=== PATIENT | female | born 1995 | race Caucasian/White ===

== ENCOUNTER 2017-08-15 14:28 | Emergency (ER) | payer MEDICAID ==
[2017-08-15 14:54] LABS: BILIRUBIN,URINE NEGATIVE (NEGATIVE)
[2017-08-15 14:57] LABS: UA w/ MICROSCOPIC CHARGE YES
[2017-08-15 15:15] LABS: UR CULTURE IF IND NOT INDICATED
--- NOTE | 2017-08-15 15:30 | ED Physician Documentation ---
PD HPI ABD PAIN - Stated complaint Stated Complaint: CHEST/ABD PX - Chief complaint Chief Complaint: Abd Pain - History obtained from History obtained from: Patient - History of Present Illness Timing - onset: How many weeks ago (2) Timing - duration: Weeks (2) Timing - details: Gradual onset, Still present, Intermittant Quality: Aching, Sharp, Pain Location: Epigastric Radiation: Chest Improved by: No: Eating, BM Worsened by: Eating Associated symptoms: Nausea, Melena (the past day), Loss of appetite. No: Fever , Hematochezia Similar symptoms before: Has not had sx before Recently seen: Not recently seen Review of Systems Constitutional: denies: Fever Nose: denies: Rhinorrhea / runny nose, Congestion Throat: denies: Sore throat Respiratory: denies: Dyspnea, Cough GI: reports: Abdominal Pain, Nausea, Vomiting, Bloody / black stool. denies: Constipation, Diarrhea : denies: Dysuria, Frequency Skin: denies: Rash, Lesions Musculoskeletal: denies: Neck pain Psychiatric: denies: Depressed Endocrine: denies: Polydypsia, Polyuria Immunocompromised: denies: Immunocompromised PD PAST MEDICAL HISTORY - Past Medical History Past Medical History: No GI: None - Past Surgical History Past Surgical History: Yes General: Cholecystectomy - Present Medications Home Medications: Ambulatory Orders Medication Instructions Recorded Confirmed HYDROcod/ACETAM 5/325 [[place] 5/325] 1 tab PO Q6H PRN #15 tablet 08/15/17 Omeprazole [PriLOSEC] 20 mg PO BID #30 capsule 08/15/17 Ondansetron HCl [Zofran] 4 mg PO Q6H PRN #20 tablet 08/15/17 Sucralfate 1 gm PO QID #20 tablet 08/15/17 - Allergies Allergies/Adverse Reactions: Allergies Allergy/AdvReac Type Severity Reaction Status Date / Time Penicillins AdvReac Unknown Verified 08/15/17 14:38 - Social History Does the pt smoke?: No Smoking Status: Never smoker Does the pt drink ETOH?: No Does the pt have substance abuse?: No - Immunizations Immunizations are current?: Yes PD ED PE NORMAL - Vitals Vital signs reviewed: Yes - General General: Alert and oriented X 3, No acute distress, Well developed/nourished - HEENT HEENT: PERRL (nonicteric) - Neck Neck: Supple, no meningeal sign, No adenopathy - Cardiac Cardiac: RRR, No murmur - Abdomen Abdomen: Soft, Non tender - Female Female : Pt declined, Other - Back Back: No CVA TTP - Derm Derm: Normal color, Warm and dry, No rash - Extremities Extremities: No deformity, No edema, No calf tenderness / cord Results - Vitals Vitals: Oxygen O2 Source Room air - EKG (time done) 14:54 Rate: Rate (enter#) (77) Rhythm: NSR [place]: Normal Intervals: Normal [place] QRS: Normal Ischemia: Normal ST segments. No: ST elevation c/w ischemia, ST depression - Labs Labs: Laboratory Tests 08/15/17 08/15/17 08/15/17 14:46 15:58 15:58 WBC 6.7 RBC 5.02 Hgb 13.1 Hct 39.6 MCV 78.9 L MCH 26.1 L MCHC 33.0 RDW 15.0 Plt Count 264 MPV 6.9 L Neut # 4.8 Lymph # 1.5 [place] # 0.4 Eos # 0.1 Baso # 0.0 Absolute Nucleated RBC 0.00 Nucleated RBC % 0.0 Sodium 138 Potassium 3.4 L Chloride 102 Carbon Dioxide 25 Anion Gap 11.0 BUN 10 Creatinine 0.6 Estimated GFR (MDRD) 126 Glucose 99 Calcium 9.1 Total Bilirubin 0.3 AST 32 ALT 47 Alkaline Phosphatase 66 Total Protein 7.7 Albumin 4.1 Globulin 3.6 Albumin/Globulin Ratio 1.1 Lipase 16 L Urine Color YELLOW Urine Clarity HAZY Urine pH 6.0 Ur Specific [place] 1.020 Urine Protein NEGATIVE Urine Glucose (UA) NEGATIVE Urine Ketones NEGATIVE Urine Occult Blood TRACE-INTA Urine Nitrite NEGATIVE Urine Bilirubin NEGATIVE Urine Urobilinogen 0.2 (NORMAL) Ur Leukocyte Esterase TRACE H Urine RBC 0-5 Urine WBC 4-5 Ur Squamous Epith Cells MANY Squamous H Urine Bacteria Few Urine Mucus Few Strands Ur Microscopic Review INDICATED Urine Culture Comments NOT INDICATED H. pylori IgG Antibody 08/15/17 15:58 WBC RBC Hgb Hct MCV MCH MCHC RDW Plt Count MPV Neut # Lymph # [place] # Eos # Baso # Absolute Nucleated RBC Nucleated RBC % Sodium Potassium Chloride Carbon Dioxide Anion Gap BUN Creatinine Estimated GFR (MDRD) Glucose Calcium Total Bilirubin AST ALT Alkaline Phosphatase Total Protein Albumin Globulin Albumin/Globulin Ratio Lipase Urine Color Urine Clarity Urine pH Ur Specific [place] Urine Protein Urine Glucose (UA) Urine Ketones Urine Occult Blood Urine Nitrite Urine Bilirubin Urine Urobilinogen Ur Leukocyte Esterase Urine RBC Urine WBC Ur Squamous Epith Cells Urine Bacteria Urine Mucus Ur Microscopic Review Urine Culture Comments H. pylori IgG Antibody Negative PD MEDICAL DECISION MAKING - ED course Complexity details: reviewed results, considered differential, d/w patient Departure - Departure Disposition: 01 Home, Self Care Clinical Impression: Abdominal pain Qualifiers: Abdominal location: epigastric Qualified Code(s): R10.13 - Epigastric pain Gastritis Qualifiers: Gastritis type: unspecified gastritis Chronicity: acute Gastritis bleeding: with bleeding Qualified Code(s): K29.01 - Acute gastritis with bleeding Condition: Stable Record reviewed to determine appropriate education?: Yes Instructions: ED PUD Vs Gastritis Follow-Up: Kenn Jones MD [Provider Admit Priv/Credential] - [facility] [Provider Group] Prescriptions: HYDROcod/ACETAM 5/325 [[place] 5/325] 1 tab PO Q6H PRN #15 tablet PRN Reason: Pain Omeprazole [PriLOSEC] 20 mg PO BID #30 capsule Ondansetron HCl [Zofran] 4 mg PO Q6H PRN #20 tablet PRN Reason: Nausea / Vomiting Sucralfate 1 gm PO QID #20 tablet Comments: Drink lots of fluids. No ibuprofen or other NSAIDs. Tylenol if needed for pain. Add hydrocodone if needed for pain. I think you have an irritated stomach/gastritis or ulcer and I would suggest some acid reducing medicine such as omeprazole twice daily for the next 2 weeks. Also coat the stomach lining with sucralfate 3 or 4 times a day for the next 5 days. Call the surgery office tomorrow to set up an appointment for the end of the week for recheck. They may consider a scope to check the stomach if you are not having improved symptoms. Also start obtaining primary care through the [facility] but that will take a while to get a first appointment. Return if worsening. Discharge Date/Time: 08/15/17 18:30
[2017-08-15] MEDS ORDERED: SODIUM CHLORIDE 0.9% 1,000 ML IV ONE (15:49)
[2017-08-15] MEDS ORDERED: MAG HYDROX/AL HYDROX/SIMETH 30 ML UDC PO STA (15:50)
[2017-08-15] MEDS ORDERED: FAMOTIDINE 20 MG/50 ML 50 ML IV ONE ×2 (15:50→16:34)
[2017-08-15] MEDS ORDERED: LIDOCAINE VISCOUS 2% 15 ML UDC MM STA (15:50)
[2017-08-15] MEDS ORDERED: ONDANSETRON 4 MG/2 ML VIAL IVP STA (15:51)
[2017-08-15] MEDS ORDERED: HYDROmorphone 0.5 MG/0.5 ML SYRINGE IVP STA ×2 (15:51→17:18)
[2017-08-15 16:05] LABS: BASOPHILS % (AUTO) 0.7 %; EOSINOPHILS # (AUTO) 0.1 10^3/uL (0.0-0.7); EOSINOPHILS % (AUTO) 1.1 %; HCT - HEMATOCRIT 39.6 % (37.0-47.0); HGB - HEMOGLOBIN 13.1 g/dL (12.0-16.0); LYMPHOCYTES # (AUTO) 1.5 10^3/uL (1.5-3.5); LYMPHOCYTES % (AUTO) 21.8 %; MEAN CORPUSCULAR HEMOGLOBIN 26.1 pg (27.0-31.0); MEAN CORPUSCULAR VOLUME 78.9 fL (81.0-99.0); MEAN PLATELET VOLUME 6.9 fL (7.9-10.8); MONOCYTES # (AUTO) 0.4 10^3/uL (0.0-1.0); MONOCYTES % (AUTO) 5.9 %; NEUTROPHILS # (AUTO) 4.8 10^3/uL (1.5-6.6); NEUTROPHILS % (AUTO) 70.5 %; RED BLOOD COUNT 5.02 10^6/uL (4.20-5.40); UNCORRECTED WHITE BLOOD COUNT 6.7 x10^3/uL; WHITE BLOOD COUNT 6.7 x10^3/uL (4.8-10.8)
[2017-08-15 16:16] LABS: BILIRUBIN,TOTAL 0.3 mg/dL (0.2-1.0); CALCIUM 9.1 mg/dL (8.5-10.3); CREATININE 0.6 mg/dL (0.4-1.0); POTASSIUM 3.4 mmol/L (3.5-5.0); TOTAL PROTEIN 7.7 g/dL (6.7-8.2)
[2017-08-15 16:17] LABS: ALBUMIN/GLOBULIN RATIO 1.1 (1.0-2.2)
[2017-08-15 16:27] LABS: H. PYLORI IGG ANTIBODY Negative (Negative); HPYLORI NEG QC Negative (Negative); HPYLORI POS QC POSITIVE (Positive)
[2017-08-15] MEDS ORDERED: ONDANSETRON 4 MG/2 ML VIAL ONE (16:33)
[2017-08-15] MEDS ORDERED: MAG HYDROX/AL HYDROX/SIMETH 30 ML UDC ONE (16:34)
[2017-08-15] MEDS ORDERED: LIDOCAINE VISCOUS 2% 15 ML UDC MM ONE (16:34)
[2017-08-15] MEDS ORDERED: HYDROmorphone 1 MG/ML SYRINGE ONE ×2 (16:40→17:29)
[2017-08-15 18:22] VITALS: BP 138/57
== END 2017-08-15 18:30 | disposition home or self-care (01) ==
LOC: ED 14:28
DX: K29.01 Acute gastritis with bleeding (principal)
CPT/HCPCS: 36415; 80053; 81001; 83690; 85025; 87339; 93005; 96365; 96375; 96376; 99284; A9270; J1170; 81003; 87086

== ENCOUNTER 2017-09-04 00:25 | Emergency (ER) | payer MEDICAID ==
--- NOTE | 2017-09-04 01:04 | ED Physician Documentation ---
PD HPI HEENT - Stated complaint Stated Complaint: RT EAR,FACE PAIN - Chief complaint Chief Complaint: Heent - History obtained from History obtained from: Patient - History of Present Illness Timing - onset: How many days ago (2-3) Timing - duration: Days Timing - details: Gradual onset Pain level now: 5 Location: Right ear, Sinuses, Throat Improves: Nothing Associated symptoms: Congestion, Cough. No: Fever Similar symptoms before: Has not had sx before Recently seen: Emergency Dept (T+ R 3 weeks ago from this ED) Review of Systems Constitutional: denies: Fever Ears: reports: Ear pain Nose: reports: Congestion, Sinus pressure / pain Throat: reports: Sore throat Respiratory: reports: Cough PD PAST MEDICAL HISTORY - Past Medical History Past Medical History: No GI: None - Past Surgical History Past Surgical History: Yes General: Cholecystectomy - Present Medications Home Medications: Ambulatory Orders Medication Instructions Recorded Confirmed HYDROcod/ACETAM 5/325 [[place] 5/325] 1 tab PO Q6H PRN #15 tablet 08/15/17 Omeprazole [PriLOSEC] 20 mg PO BID #30 capsule 08/15/17 09/04/17 Azithromycin 250 mg PO DAILY #4 tablet 09/04/17 - Allergies Allergies/Adverse Reactions: Allergies Allergy/AdvReac Type Severity Reaction Status Date / Time Penicillins AdvReac Unknown Verified 09/04/17 00:33 - Social History Does the pt smoke?: No Smoking Status: Never smoker Does the pt drink ETOH?: No Does the pt have substance abuse?: No - Immunizations Immunizations are current?: Yes PD ED PE NORMAL - Vitals Vital signs reviewed: Yes - General General: Alert and oriented X 3, No acute distress, Well developed/nourished - HEENT HEENT: Moist mucous membranes, Pharynx benign - Neck Neck: Supple, no meningeal sign - Respiratory Respiratory: No respiratory distress, Clear bilaterally PD ED PE EXPANDED - HEENT HEENT: R TM red, L TM red, Other (left 10 panic membrane has lots of landmarks and is uniformly erythematous. Left external auditory canal is erythematous and tender upon insertion of plastic speculum. Right temperament membrane is dull with mild erythema right external auditory canal is edematous with erythema and tenderness.) Results - Vitals Vitals: Oxygen O2 Source Room air PD MEDICAL DECISION MAKING - ED course Complexity details: considered differential, d/w patient Departure - Departure Disposition: 01 Home, Self Care Clinical Impression: Otitis media Qualifiers: Otitis media type: suppurative Chronicity: acute Laterality: bilateral Recurrence: not specified as recurrent Spontaneous tympanic membrane rupture: without spontaneous rupture Qualified Code(s): H66.003 - Acute suppurative otitis media without spontaneous rupture of ear drum, bilateral Otitis externa Qualifiers: Otitis externa type: unspecified type Chronicity: acute Laterality: bilateral Qualified Code(s): H60.503 - Unspecified acute noninfective otitis externa, bilateral Condition: Good Instructions: ED Otitis Media Acute Adult, ED Otitis Externa Follow-Up: [facility] [Provider Group] [facility] [Provider Group] Prescriptions: Azithromycin 250 mg PO DAILY #4 tablet Comments: Use the antibiotic drops as follows: 3-4 drops in each ear three times per day for one week Discharge Date/Time: 09/04/17 01:49
[2017-09-04] MEDS ORDERED: NEOMYCIN/POLYMYX/HC OTIC DROPS EACHEAR STA (01:27)
[2017-09-04] MEDS ORDERED: AZITHROMYCIN 250 MG TABLET PO STA (01:29)
[2017-09-04] MEDS ORDERED: NEOMYCIN/POLYMYX/HC OTIC DROPS ONE (01:38)
[2017-09-04] MEDS ORDERED: AZITHROMYCIN 250 MG TABLET PO ONE (01:38)
[2017-09-04 01:50] VITALS: BP 110/73
== END 2017-09-04 01:49 | disposition home or self-care (01) ==
LOC: ED 00:25
DX: H66.003 Acute suppurative otitis media without spontaneous rupture of ear drum, bilateral (principal); H60.93 Unspecified otitis externa, bilateral
CPT/HCPCS: 99283; A9270

== ENCOUNTER 2017-11-09 19:43 | Emergency (ER) | payer MEDICAID ==
[2017-11-09] MEDS ORDERED: MAG HYDROX/AL HYDROX/SIMETH 30 ML UDC PO STA (20:35)
[2017-11-09] MEDS ORDERED: LIDOCAINE VISCOUS 2% 15 ML UDC MM STA (20:35)
[2017-11-09] MEDS ORDERED: FAMOTIDINE 20 MG TABLET PO STA (20:35)
[2017-11-09] MEDS ORDERED: ACETAMINOPHEN 500 MG TABLET PO STA (21:18)
--- NOTE | 2017-11-09 21:26 | ED Physician Documentation ---
PD HPI CHEST PAIN - Stated complaint Stated Complaint: CP/SOA/NAUSEA - Chief complaint Chief Complaint: General - History obtained from History obtained from: Patient, Family - History of Present Illness Timing - onset: Today Timing - onset during: Rest, Eating Timing - details: Abrupt onset, Still present Quality: Sharp, Indigestion Location: Substernal Associated symptoms: No: Shortness of air, Diaphoresis, Nausea, Vomiting Similar symptoms before: Work up / diagnostics Recently seen: Not recently seen - Additional information Additional information: Patient is a 22 year old female with a history of GERD who is presenting to the emergency department for substernal chest pain that radiates up towards her throat. patient states that she has had pain like this before and was started on a PPI. Patient and mother are working on getting patient an EGD. Review of Systems Constitutional: denies: Fever, Chills Eyes: reports: Reviewed and negative Ears: reports: Reviewed and negative Nose: reports: Reviewed and negative Throat: denies: Sore throat Cardiac: reports: Chest pain / pressure. denies: Palpitations, Pedal edema, Calf pain Respiratory: denies: Dyspnea, Cough, Wheezing GI: reports: Nausea. denies: Vomiting : reports: Reviewed and negative Skin: denies: Rash, Lesions Musculoskeletal: denies: Back pain Neurologic: denies: Headache Immunocompromised: denies: Immunocompromised PD PAST MEDICAL HISTORY - Past Medical History GI: Other Other Past Medical History: Was supossed to have [facility] endoscopy but not scheduled due do lack of physicain - Past Surgical History Past Surgical History: Yes General: Cholecystectomy - Present Medications Home Medications: Ambulatory Orders Medication Instructions Recorded Confirmed HYDROcod/ACETAM 5/325 [[place] 5/325] 1 tab PO Q6H PRN #15 tablet 08/15/17 Omeprazole [PriLOSEC] 20 mg PO BID #30 capsule 08/15/17 09/04/17 Azithromycin 250 mg PO DAILY #4 tablet 09/04/17 Lidocaine Viscous 2% [Xylocaine 10 ml MM DAILY #1 bottle 11/09/17 Viscous 2%] - Allergies Allergies/Adverse Reactions: Allergies Allergy/AdvReac Type Severity Reaction Status Date / Time Penicillins AdvReac Unknown Verified 11/09/17 19:54 - Social History Does the pt smoke?: No Smoking Status: Never smoker Does the pt drink ETOH?: No Does the pt have substance abuse?: No - Immunizations Immunizations are current?: Yes - POLST Patient has POLST: No PD ED PE NORMAL - Vitals Vital signs reviewed: Yes - General General: Alert and oriented X 3, No acute distress, Well developed/nourished - HEENT HEENT: Atraumatic, PERRL - Neck Neck: Supple, no meningeal sign, No JVD - Cardiac Cardiac: RRR, No murmur - Respiratory Respiratory: No respiratory distress, Clear bilaterally - Abdomen Abdomen: Soft, Non tender, Non distended - Derm Derm: Normal color, Warm and dry, No rash - Extremities Extremities: No deformity, No calf tenderness / cord - Neuro Neuro: Alert and oriented X 3, No motor deficit, No sensory deficit, Normal speech Results - Vitals Vitals: Vital Signs - 24 hr 11/09/17 11/09/17 19:50 21:33 Temperature 36.8 C Heart Rate 99 77 Respiratory 18 15 Rate Blood Pressure 142/84 H 122/72 O2 Saturation 100 98 Oxygen O2 Source Room air - EKG (time done) 195 Rate: Rate (enter#) (91) Rhythm: NSR [place]: LAD Intervals: Normal [place] QRS: Poor R wave progression Ischemia: Non specific changes Compare to prior EKG: Unchanged from prior EKG - Labs Labs: Laboratory Tests 11/09/17 20:47 Troponin I < 0.04 PD MEDICAL DECISION MAKING - ED course Complexity details: reviewed old records, reviewed results, re-evaluated patient , considered differential, d/w patient, d/w family ED course: Patient was seen and examined at bedside. Patient was treated with pepcid, maalox and viscous lidocaine. ekg was performed as well as a troponin. patient was PERC negative and had a HEART score of 1. patient required no further inpatient work up and was stable for discharge with outpatient follow up. Departure - Departure Disposition: 01 Home, Self Care Clinical Impression: GERD (gastroesophageal reflux disease) Condition: Good Instructions: GERD Dc Follow-Up: ABIGAIL PEREZ ARNP [Primary Care Provider] - Prescriptions: Lidocaine Viscous 2% [Xylocaine Viscous 2%] 10 ml MM DAILY #1 bottle Comments: Your diagnostics today were within normal limits. Your pain is unlikely cardiac in nature but more likely secondary to GERD. You should at daily pepcid to your omeprazole and take maalox for breakthrough pain. You should avoid spicey, fatty or acidic food and avoid large meals. You should follow up with your pmd at your scheduled appointment. You may return to the emergency department at any time for new, worsening or uncontrollable symptoms. Discharge Date/Time: 11/09/17 21:43
[2017-11-09 21:33] VITALS: BP 122/72
== END 2017-11-09 21:43 | disposition home or self-care (01) ==
LOC: ED 19:43
DX: K21.9 Gastro-esophageal reflux disease without esophagitis (principal)
CPT/HCPCS: 36415; 84484; 93005; 99283; A9270

== ENCOUNTER 2017-12-31 20:21 | Emergency (ER) | payer MEDICAID ==
--- NOTE | 2017-12-31 21:18 | ED Physician Documentation ---
PD HPI URI - Stated complaint Stated Complaint: COUGH/FEVER - Chief complaint Chief Complaint: Resp - History obtained from History obtained from: Patient - History of Present Illness Timing - onset: How many days ago (2-3) Timing duration: Days Timing details: Gradual onset Associated symptoms: Fever (today), Chills, Sweats, Dry cough. No: Ear pain, Nasal congestion, Sore throat Recently seen: Not recently seen - Additional information Additional information: cough x 2-3 days, developed fever today Tmax 101.8 Review of Systems Constitutional: reports: Fever, Chills, Sweats Throat: denies: Sore throat Cardiac: reports: Reviewed and negative Respiratory: reports: Cough. denies: Dyspnea, Wheezing GI: reports: Reviewed and negative PD PAST MEDICAL HISTORY - Past Medical History Past Medical History: Yes GI: GERD, Cholelithiasis, Other - Past Surgical History Past Surgical History: Yes General: Cholecystectomy - Present Medications Home Medications: Ambulatory Orders Medication Instructions Recorded Confirmed Omeprazole [PriLOSEC] 20 mg PO BID #30 capsule 08/15/17 09/04/17 guaiFENesin/CODEINE [Robitussin AC] 5 - 10 ml PO Q6H PRN #100 udc 12/31/17 - Allergies Allergies/Adverse Reactions: Allergies Allergy/AdvReac Type Severity Reaction Status Date / Time Penicillins AdvReac Unknown Verified 12/31/17 20:29 - Social History Does the pt smoke?: No Smoking Status: Never smoker Does the pt drink ETOH?: No Does the pt have substance abuse?: No - Immunizations Immunizations are current?: Yes - POLST Patient has POLST: No PD ED PE NORMAL - Vitals Vital signs reviewed: Yes - General General: Alert and oriented X 3, No acute distress, Well developed/nourished - HEENT HEENT: Moist mucous membranes, Pharynx benign - Cardiac Cardiac: RRR, No murmur - Respiratory Respiratory: No respiratory distress, Other (bibasilar course breath sounds) Results - Vitals Vitals: Oxygen O2 Source Room air - Labs Labs: Microbiology 12/31/17 21:30 Group A Strep Throat Culture - Final Throat MIXED OROPHARYNGEAL KYLE PRESENT. NO BETA STREP PRESENT IN CULTURE. Laboratory Tests 12/31/17 21:30 Group A Strep Rapid Negative - Rads (name of study) chest xray Radiology: Prelim report reviewed, See rad report PD MEDICAL DECISION MAKING - ED course Complexity details: reviewed results, re-evaluated patient, considered differential, d/w patient Departure - Departure Disposition: 01 Home, Self Care Clinical Impression: Bronchitis Condition: Good Instructions: ED Upper Resp Infec No Abx Tx Follow-Up: ABIGAIL PEREZ ARNP [Primary Care Provider] - (3-5 days if symptoms persist) Prescriptions: guaiFENesin/CODEINE [Robitussin AC] 5 - 10 ml PO Q6H PRN #100 udc PRN Reason: Cough Discharge Date/Time: 12/31/17 22:52
--- NOTE | 2017-12-31 22:15 | XRAY Report ---
EXAM: CHEST RADIOGRAPHY EXAM DATE: 12/31/2017 09:48 PM. CLINICAL HISTORY: Cough and fever. Shortness of breath for a week. COMPARISON: None. TECHNIQUE: 2 views. FINDINGS: Lungs/Pleura: No focal opacities evident. No pleural effusion. No pneumothorax. Normal volumes. Mediastinum: Heart and mediastinal contours are unremarkable. Other: No compression fractures. IMPRESSION: Normal 2-view chest radiography. [facility] Referring Provider Line: [phone] SITE ID: [id number]
[2017-12-31] MEDS ORDERED: guaiFENesin/CODEINE 5 ML UDC PO STA (22:27)
[2017-12-31 22:57] VITALS: BP 122/64
== END 2017-12-31 22:52 | disposition home or self-care (01) ==
LOC: ED 20:21
DX: J40 Bronchitis, not specified as acute or chronic (principal)
CPT/HCPCS: 71046; 87070; 87430; 99283; A9270